=== PATIENT | female | born 1995 | race Asian ===

== ENCOUNTER → 2017-06-13 | Outpatient (CLI) | payer SELFPAY | LOC: COL.LAB 11:17 | DX: N91.2 Amenorrhea, unspecified (principal) ==

== ENCOUNTER 2020-11-11 02:26 | Emergency (ER) | payer OTHER ==
[~2020-11-11] VITALS: Ht 154.9 cm; Wt 68.2 kg
[2020-11-11 03:12] LABS: COLLECTION METHOD CLEAN CATCH
[2020-11-11 03:16] LABS: BASO % 0.5 % (0.0-2.0); EOS # 0.1 (0.0-0.7); EOS % 1.8 % (0-4.0); GRAN # 4.3 (1.4-6.5); GRAN % 55.7 % (42.2-75.2); HEMATOCRIT 40.1 % (37.0-47.0); HEMOGLOBIN 13.5 g/dl (12.5-16.0); LYMPH # 2.4 (1.2-3.4); LYMPH % 30.5 % (20.0-51.0); MEAN CELL VOLUME 92 fl (80.0-100.0); MEAN CORPUSCULAR HEMOGLOBIN 31 pg (27.0-31.0); MEAN CORPUSCULAR HGB CONC 34 g/dl (33.0-37.0); MEAN PLATELET VOLUME 8.9 fl (7.4-10.4); MONO # 0.9 (0.1-0.6); MONO % 11.4 % (1.7-9.3); PLATELET COUNT 334 K/mm3 (130-400); RED BLOOD COUNT 4.36 M/mm3 (4.10-5.30); REDCELL DISTRIBUTION WIDTH-CV 11.6 % (11.5-14.5)
[2020-11-11 03:19] LABS: MUCOUS Present /lpf; PH 5 (5-8); URINE APPEARANCE Hazy; URINE BACTERIA Rare /hpf; URINE BILIRUBIN Negative (NEGATIVE); URINE BLOOD Negative (NEGATIVE); URINE COLOR Yellow; URINE GLUCOSE Negative (NEGATIVE); URINE KETONE Negative (NEGATIVE); URINE LEUKOCYTE ESTERASE Negative (NEGATIVE); URINE NITRATE Negative (NEGATIVE); URINE PROTEIN(semi-quant) Negative (NEGATIVE); URINE RBC 0-2 /hpf; URINE UROBILINOGEN Negative (NEGATIVE); URINE WBC 0-2 /hpf
[2020-11-11 03:24] LABS: ALBUMIN 4.3 gm/dL (3.5-5.0); BILIRUBIN,TOTAL 1.1 mg/dL (0.0-1.0); CALCIUM 9.1 mg/dL (8.4-10.2); CREATININE, serum 0.72 (0.52-1.25); POTASSIUM 3.7 mmol/L (3.4-5.0)
[2020-11-11] MEDS ORDERED: ZOFRAN ODT4 MG PO (05:31)
[2020-11-11] MEDS ORDERED: MOTRIN 600600 MG/TAB PO (05:31)
[2020-11-11] MEDS ORDERED: TYLENOL 325MG325 MG PO (05:31)
[2020-11-11 05:41] VITALS: BP 105/68; PULSE 70; TEMP 99.1
== END 2020-11-11 06:10 | disposition home or self-care (01) ==
LOC: COL.ER 02:26
PROVIDERS: Emergency Medicine
DX: K63.89 Other specified diseases of intestine (principal); N83.202 Unspecified ovarian cyst, left side
CPT/HCPCS: J1885; J2270; J2405; J7030; Q9967